=== PATIENT | female | born 1940 | race Caucasian/White ===

== ENCOUNTER 2017-11-29 18:05 | Emergency (ER) | payer MEDICARE, BC ==
[2017-11-29 18:57] VITALS: BP 152/69
--- NOTE | 2017-11-29 19:12 | UC ---
Shoulder Pain HPI - HPI Summary HPI Summary: 77 y/o female presents to the urgent care c/o left shoulder and RT knee pain s/ p falling on 11/27/2017. Pt reports she slipped on the floor and fell on her left side of shoulder. Pain is mild 2/10 dull w/o any radiation, but she is unable to fully raise her left arm due to stiffness. Pt states Rt knee has a mild bruise. She has Hx of shoulder fracture about 30 years ago since completely resolved w/ physical therapy. Pt can move hand ald elbow w/o any difficulty.Pt has only applied ice and has not taking medications for pain. Pt denies numbness or tingling sensation over the left arm, SOB, chest pain, palpitations, abdominal pain, N/V/D. - History of Current Complaint Chief Complaint: UCUpperExtremity Stated Complaint: PT FELL FRI. LEFT SHLD /RT KNEE PAIN Time Seen by Provider: 11/29/17 18:59 Hx Obtained From: Patient ?: No - menopausal Onset/Duration: Sudden Onset, Lasting Days - 2 days ago, Still Present Timing: Intermittent Episode Lasting Severity Initially: Mild Severity Currently: Mild Location Of Pain: Is Discrete @ - left shoulder and Rt knee s/p fall Pain Intensity: 5 Pain Scale Used: 0-10 Numeric Character: Dull, Stiffness Aggravating Factor(s): Movement, Lifting, Extension, Abduction Alleviating Factor(s): Rest, Ice Associated Signs And Symptoms: Positive: Negative, Bruising - RT knee. Negative : Fever, Weakness, Numbness/Tingling Related History: Dominant Hand Right - Risk Factors Non-Orthopedic Risk Factor: Negative DVT Risk Factors: Negative Septic Arthritis Risk Factor: Negative - Allergies/Home Medications Allergies/Adverse Reactions: Allergies Allergy/AdvReac Type Severity Reaction Status Date / Time No Known Allergies Allergy Verified 11/29/17 18:44 Home Medications: Home Medications Ascorbic Acid TAB* [Vitamin C TAB*] 500 mg PO DAILY 11/29/17 [History Confirmed 11/29/17] Aspirin [Adult Aspirin] 81 mg PO DAILY 11/29/17 [History Confirmed 11/29/17] Blood Pressure Med 1 tab PO DAILY 11/29/17 [History Confirmed 11/29/17] Cholecalciferol (Vitamin D3) [Vitamin D3] 3,000 unit PO DAILY 11/29/17 [History Confirmed 11/29/17] Multivitamin [Daily Multiple Vitamin] 1 tab PO DAILY 11/29/17 [History Confirmed 11/29/17] PMH/Surg Hx/FS Hx/Imm Hx Previously Healthy: Yes Cardiovascular History: Hypertension - Surgical History Surgical History: Yes Surgery Procedure, Year, and Place: hysterectomy - Family History Known Family History: Positive: None - Pt denies FMHX - Social History Occupation: Retired Lives: With Family Alcohol Use: None Substance Use Type: None Smoking Status (MU): Former Smoker When Did the Patient Quit Smoking/Using Tobacco: 1958 Review of Systems Constitutional: Negative Skin: Bruising - Rt knee s/p fall Eyes: Negative ENT: Negative Respiratory: Negative Cardiovascular: Negative Gastrointestinal: Negative Genitourinary: Negative Motor: Negative Neurovascular: Negative Musculoskeletal: Decreased ROM - left shoulder, Other: - left shoulder and RT knee pain s/p falling Neurological: Negative Psychological: Negative Is Patient Immunocompromised?: No All Other Systems Reviewed And Are Negative: Yes Physical Exam - Summary Physical Exam Summary: Vital Signs Reviewed: Yes GENERAL: Well-Appearing, No Pain Distress, Well-Nourished - female w/o any apparent pain distress Eyes: Positive: Conjunctiva Clear - PERRL,EOMI ENT: Positive: Normal ENT inspection, Hearing grossly normal, Pharyngeal erythema - mild, Nasal drainage - clear, Uvula midline Neck: Positive: Supple, Nontender, No Lymphadenopathy Respiratory: Positive: Chest non-tender, Lungs clear, Normal breath sounds, No respiratory distress Cardiovascular: Positive: RRR, No Murmur, Pulses Normal, Brisk Capillary Refill Abdomen Description: Positive: Nontender, No Organomegaly, Soft. Negative: CVA Tenderness (R), CVA Tenderness (L) Bowel Sounds: Positive: Present Musculoskeletal: LF shoulder: The L shoulder is with/without obvious asymmetry or deformity when compared to the R shoulder. posterior shoulder w/ ecchymosis and bruising, no crepitus. No bony deformity or prominence of humeral head. No erythema, warmth. No Point Tenderness to palpation over the clavicle, or scapula. positive tenderness over Acromioclavicular joint and humeral head with mild swelling, PT to palpation of the bicipital groove . NT to palpation of the muscles of the sternocleidomastoid, pectoralis, biceps/triceps, deltoid, trapezius, . Limited ROM due to pain especially in adduction and abduction.on both passive and active, internal/external rotation, flexion/extension. "empty can and drop arm test unable to perform due to pain. No axillary tenderness or lymphadenopathy. Normal sensation over the deltoid and fingers. Distal motor and neurovascular status is intact. Neurological Exam: Normal Psychological Exam: Normal Skin Exam: Mild brusing over the RT knee. Triage Information Reviewed: Yes Vital Signs: Initial Vital Signs Temp 98.5 F 11/29/17 18:50 Pulse 76 11/29/17 18:50 Resp 20 11/29/17 18:50 BP 152/69 11/29/17 18:50 Pulse Ox 98 11/29/17 18:50 Shoulder Course/Dx - Course Course Of Treatment: 77 y/o female presents to the urgent care c/o left shoulder and RT knee pain s/p falling on 11/27/2017. Pt reports she slipped on the floor and fell on her left side of shoulder. Pain is mild 2/10 dull w/o any radiation, but she is unable to fully raise her left arm due to stiffness. Pt states Rt knee has a mild bruise. She has Hx of shoulder fracture about 30 years ago since completely resolved w/ physical therapy. Pt can move hand ald elbow w/o any difficulty.Pt has only applied ice and has not taking medications for pain. Pt denies numbness or tingling sensation over the left arm, SOB, chest pain, palpitations, abdominal pain, N/V/D. Hx obtained. shoulder X- ray ordered: Impression: Osteopenia, Probable nondisplaced linear fracture thorugh the greater tuberosity of the the left proximal humerus, also osteoarthritis and calcific tentidonapathy. Pt's symptoms discussed w/ DR Grullon who recommended immobilization w/ shoulder sling and f/u w/ Orhtopetic Pt' s Rx Naproxen PO. Advise to keep applying ice Shoulder immobilized with a shoulder sling and Advised to f/u with Orthopedic DR García referral in 2-3 days for further evaluation and treatment. Pt understood and agreed w/ plan of care and left the clinic hemodynamically stable, ambulating, A&OX3 - Differential Dx/Diagnosis Differential Diagnosis/HQI/PQRI: AC Separation, Contusion, Dislocation, Sprain, Strain, Tendonitis Provider Diagnoses: 1- Left shoulder and RT knee pain s/p fall. 2- Left nondisplaced linear fracture of the left proximal humerus. 3-Left shoulder calcific tendinopathy. 4-Osteoarthritis. 5-Uncontrolled HTN Discharge - Sign-Out/Discharge Documenting (check all that apply): Patient Departure - D/c home - Discharge Plan Condition: Stable Disposition: HOME Prescriptions: Naproxen TAB* [Naprosyn 250 mg TAB*] 250 mg PO Q8H PRN #30 tab PRN Reason: shoulder pain Patient Education Materials: Scapular Fracture (ED), Osteoarthritis (ED), Calcific Tendinitis (ED), Low-Sodium Diet (ED) Referrals: Monika Nguyen MD [Primary Care Provider] - 1 Week Pascual García MD [Medical Doctor] - 2 Days Additional Instructions: 1-Please take Naproxen PO q8hrs prn as directed to alleviate pain and swelling. 2-Please apply ice, keep your shoulder immobilized with the shoulder sling avoid any strenuous exercise or heavy lifting 3- Please f/u with Orthopedic DR García in 2-3 days for further evaluation and treatment on her shoulder fracture. 4-Your BP is elevated today. please decrease salt in your diet, monitor BP and if it continues to be elevated please f/u with your PCP for further management - Billing Disposition and Condition Condition: STABLE Disposition: Home
--- NOTE | 2017-11-29 19:46 | RAD ---
HISTORY: left shoulder pain s/p fall COMPARISONS: None VIEWS: 4, Frontal internal rotation, external rotation, outlet, and axillary views of the left shoulder FINDINGS: BONE DENSITY: There is diffuse osteopenia. BONES: On one projection, there is a linear lucency seen through the greater tuberosity of the proximal humerus. JOINTS: There is mild osteoarthritis of the AC joint. ALIGNMENT: There is no dislocation. SOFT TISSUES: There is soft tissue calcification along the greater tuberosity. OTHER FINDINGS: None. IMPRESSION: 1. OSTEOPENIA. 2. PROBABLE NONDISPLACED FRACTURE THROUGH THE GREATER TUBEROSITY OF THE PROXIMAL HUMERUS. 3. MILD OSTEOARTHRITIS. 4. SOFT TISSUE CALCIFICATION SUGGESTIVE OF A CALCIFIC TENDINOPATHY.
== END 2017-11-29 20:17 | disposition home or self-care (01) ==
LOC: UCCORT 18:05
DX: S42.202A Unspecified fracture of upper end of left humerus, initial encounter for closed fracture (principal); M25.561 Pain in right knee; W01.0XXA Fall on same level from slipping, tripping and stumbling without subsequent striking against object, initial encounter; Y93.9 Activity, unspecified; Y92.9 Unspecified place or not applicable; M75.32 Calcific tendinitis of left shoulder; M19.012 Primary osteoarthritis, left shoulder; I10 Essential (primary) hypertension; Z87.891 Personal history of nicotine dependence
CPT/HCPCS: 99203; G0463

== ENCOUNTER 2017-12-10 07:30 | Emergency (ER) | payer MEDICARE, BC ==
[2017-12-10 07:53] VITALS: BP 128/53
[2017-12-10] MEDS ORDERED: Lidocaine 1% MPF* 2 ML VIAL INJ ONE (08:24)
--- NOTE | 2017-12-10 09:00 | UC ---
Laceration HPI - HPI Summary HPI Summary: 77-year-old female with history of hypertension presents with laceration to the skin overlying the r dorsal Right MCP joint while she was washing disheS at home when a glass had cracked. Denies any weakness or numbness of the fingers. No limitation of range of motion. No prior episodes. No remitting or worsening factors. Bleeding controlled prior to arrival. - History Of Current Complaint Chief Complaint: UCLaceration Stated Complaint: RIGHT HAND LAC Time Seen by Provider: 12/10/17 08:05 Pain Intensity: 0 - Allergies/Home Medications Allergies/Adverse Reactions: Allergies Allergy/AdvReac Type Severity Reaction Status Date / Time No Known Allergies Allergy Verified 12/10/17 07:41 Home Medications: Home Medications Lisinopril [Lisinopril 30 MG-] 30 mg DAILY 12/10/17 [History Confirmed 12/10/17] PMH/Surg Hx/FS Hx/Imm Hx - Additional Past Medical History Additional PMH: No history of diabetes - Surgical History Surgical History: Yes Surgery Procedure, Year, and Place: hysterectomy - Family History Known Family History: Positive: None - Pt denies FMHX - Social History Alcohol Use: None Substance Use Type: None Smoking Status (MU): Former Smoker When Did the Patient Quit Smoking/Using Tobacco: 1958 - Immunization History Most Recent Tetanus Shot: UTD Review of Systems Skin: Other - Laceration as described in history of present illness All Other Systems Reviewed And Are Negative: Yes Physical Exam - Summary Physical Exam Summary: Gen: alert, in no acute distress HEENT: EOMI, normoecphalic, atruamatic Neck: supple, no masses CV: Normal s1 s2, no murmurs Resp: normal breath sounds b/l GI: no tenderness, no masses Musculoskeletal: normal ROM all 4 extremities Skin: 1.5 cm linear laceration to the skin overlying the dorsal surface of the right MCP joint. Small amount of tendon visible, no appreciable laceration. No visible tendinous abnormality on full range of motion. Distal neurovascular exam intact with normal cap refill in the fingers with normal distal pulses in the radial areas bilaterally. Lymph: no lymphadenopathy Psych: appropriate affect, oriented Triage Information Reviewed: Yes Vital Signs: Initial Vital Signs Temp 36.3 C 12/10/17 07:46 Pulse 65 12/10/17 07:46 Resp 16 12/10/17 07:46 BP 128/53 12/10/17 07:46 Pulse Ox 97 12/10/17 07:46 Laceration Repair - Laceration Repair 1 Description: Linear Laceration Size After Repair: Length (cm) - 1.5 Modified For Repair: No Type Injection: Local Anesthesia Used: 1.0% Lido Cleansing Completed Via Routine Prep: Yes Irrigation With Pressure Irrigation Device: Yes Closure Material: Sutures Closure Method: Single Layer Suture Of: Skin Suture Type: Nylon - 6-0 nylon used, sutures x3 simple interrupted, tolerated well, normal post procedural neurovascular exam Laceration Course/Dx - Course/Dx Course Of Treatment: Patient tolerated procedure well, instructed to wear splint for 3 days to aid in wound healing and to return in 10-14 days for stitch removal. Patient agrees to and understand discharge instructions. Repeat neurovascular exam after procedure intact. - Differential Dx - Laceration/Wound Provider Diagnoses: Laceration to the right hand Discharge - Sign-Out/Discharge Documenting (check all that apply): Patient Departure - home All imaging exams completed and their final reports reviewed: No Studies - Discharge Plan Condition: Stable Disposition: HOME Patient Education Materials: Care For Your Stitches (DC) Referrals: Monika Nguyen MD [Primary Care Provider] - Additional Instructions: PLEASE RETURN IN 10-14 DAYS FOR REMOVAL OF STITCHES PLEASE REPORT TO THE ER IF YOU HAVE ANY WORSENING OR CONCERNING SYMPTOMS SUCH PUS DRAINAGE, INCREASING PAIN, OR NUMBNESS OR WEAKNESS OF THE FINGERS PLEASE LEAVE DRESSING UNTOUCHED FOR 24H YOU MAY WASH NORMALLY THEREAFTER WITHOUT SCRUBBING PLEASE APPLY ANTIBIOTIC OINTMENT TWICE DAILY WITH CLEAN DRESSINGS PLEASE LEAVE SPLINT ON FOR 3 DAYS, NO HEAVY LIFTING WITH RIGHT HAND THEREAFTER - Billing Disposition and Condition Condition: STABLE Disposition: Home
== END 2017-12-10 09:14 | disposition home or self-care (01) ==
LOC: UCCORT 07:30
DX: S61.411A Laceration without foreign body of right hand, initial encounter (principal); I10 Essential (primary) hypertension; Z79.899 Other long term (current) drug therapy; Z87.891 Personal history of nicotine dependence; W25.XXXA Contact with sharp glass, initial encounter; Y92.009 Unspecified place in unspecified non-institutional (private) residence as the place of occurrence of the external cause; Y93.G1 Activity, food preparation and clean up
CPT/HCPCS: 12001; 99211; G0463